=== PATIENT | male | born 1975 | race Caucasian/White ===

== ENCOUNTER 2021-03-10 15:43 | Emergency (ER) | payer MEDICARE, MEDICAID ==
--- NOTE | 2021-03-10 15:51 | EDM.PDOC ---
ED HPI GENERAL MEDICAL PROBLEM - General Stated Complaint: sob Time Seen by Provider: 03/10/21 15:50 Source of Information: Reports: Patient, EMS, EMS Notes Reviewed History Limitations: Reports: Intoxication - History of Present Illness INITIAL COMMENTS - FREE TEXT/NARRATIVE: pt is here severely intoxicated w alcohol , comes from home after he called EMS with c/o chest pain, he was found lethargic , with stable vitals and nl BS, pt here is able to states that his chest hurts , denies taking any drugs, admit to alcohol, denies head trauma or any other associated sx. Chest Pain Score (Numeric/FACES): 5 - Related Data Allergies Allergy/AdvReac Type Severity Reaction Status Date / Time No Known Allergies Allergy Verified 01/15/16 08:44 Home Meds: Home Meds Hydrocodone/Acetaminophen [[place] 5-325] 1 - 2 tab PO Q4H PRN #20 tablet 01/15/16 [Rx] Penicillin V Potassium [IJD: Penicillin V Potassium] 500 mg PO .EVERY 6 HOURS #40 tab 01/15/16 [Rx] Past Medical History - Infectious Disease History Infectious Disease History: Reports: Chicken Pox - Past Surgical History Musculoskeletal Surgical History: Reports: Arthroscopic Knee Social & Family History - Family History Family Medical History: No Pertinent Family History ED ROS GENERAL - Review of Systems Review Of Systems: See Below Constitutional: Reports: Weakness, Fatigue HEENT: Reports: No Symptoms Respiratory: Reports: No Symptoms Cardiovascular: Reports: Chest Pain GI/Abdominal: Reports: No Symptoms : Reports: No Symptoms Musculoskeletal: Reports: No Symptoms Skin: Reports: No Symptoms Neurological: Reports: No Symptoms ED EXAM, GENERAL - Physical Exam Exam: See Below Exam Limited By: Other (lethergy and alcohol intoxication.) General Appearance: Alert, No Apparent Distress Eye Exam: Bilateral Eye: Normal Inspection Nose: Normal Inspection Throat/Mouth: Normal Inspection, Normal Oropharynx Head: Atraumatic, Normocephalic Neck: Normal Inspection, Supple, Full Range of Motion Respiratory/Chest: No Respiratory Distress, Lungs Clear, No Accessory Muscle Use Cardiovascular: Normal Peripheral Pulses, Regular Rate, Rhythm, No Murmur GI/Abdominal: Normal Bowel Sounds, Soft, Non-Tender Back Exam: Normal Inspection Extremities: Normal Inspection, Normal Range of Motion, No Pedal Edema, Normal Capillary Refill #1 Interpretation EKG Date: 03/10/21 Time: 15:54 Rhythm: NSR [place]: Normal P-Wave: Present QRS: Normal ST-T: Normal QT: Normal Course - Vital Signs Text/Narrative:: pt is severly intoxicated w alcohol, etoh is 0.25, his labs were reviewed, has mildly elevated liver enzymes and ALK-Ph , CXR shows no aspiration, trop is neg and ekg NSR , chest pain is likely secondary to reflex disease ... pt has known Hx of alcoholism ... pt is still intoxicated, and will continue hydration/ monitoring until he is sober up in few hrs, pt care will be handed to the upcoming physician at time of shift change at 7 PM. Last Recorded V/S: Last Vital Signs Temp 36.6 C 03/10/21 15:43 Pulse 112 H 03/10/21 15:43 Resp 12 03/10/21 15:43 BP 156/115 H 03/10/21 15:43 Pulse Ox 97 03/10/21 15:43 - Orders/Labs/Meds Orders: Active Orders 24 hr Category Date Time Status Chest 1V Frontal [CR] Stat Exams 03/10/21 16:29 Taken Sodium Chloride 0.9% [Normal Saline] 1,000 ml Med 03/10/21 16:00 Active IV ASDIRECTED Medication Orders Sodium Chloride (Normal Saline) 1,000 mls @ 999 mls/hr IV ASDIRECTED TATIANA Last Admin: 03/10/21 16:11 Dose: 999 mls/hr Documented by: MARBELLA Labs: Laboratory Tests 03/10/21 03/10/21 03/10/21 Range/Units 16:00 16:00 16:00 WBC 8.0 (3.2-10.1) x10-3/uL RBC 5.87 (3.90-5.90) x10(6)uL Hgb 18.5 H (12.9-17.7) g/dL Hct 53.1 H (38.3-50.1) % MCV 90.6 (80.8-98.7) fL MCH 31.6 (27.0-33.3) pg MCHC 34.9 (28.7-35.3) g/dL RDW 12.7 (12.4-15.0) % Plt Count 353 (117-477) x10(3)uL MPV 6.4 L (6.7-11.0) fL Neut % (Auto) 55.4 (40.3-71.8) % Lymph % (Auto) 35.6 (15.8-45.3) % Cache % (Auto) 5.4 L (5.5-15.2) % Eos % (Auto) 2.1 (0.1-6.8) % Baso % (Auto) 1.5 (0.3-3.8) % Neut # (Auto) 4.5 (1.7-6.9) x10-3/uL Lymph # (Auto) 2.9 (0.5-4.5) x10-3/uL Cache # (Auto) 0.4 (0.0-1.2) x10-3/uL Eos # (Auto) 0.2 (0.0-0.6) x10-3/uL Baso # (Auto) 0.1 (0.0-0.3) x10-3/uL Sodium 139 (135-145) mmol/L Potassium 3.4 L (3.5-5.3) mmol/L Chloride 98 L (100-110) mmol/L Carbon Dioxide 19 L (21-32) mmol/L BUN 8 (7-18) mg/dL Creatinine 0.9 (0.70-1.30) mg/dL Est Cr Clr Drug Dosing TNP Estimated GFR (MDRD) > 60 (>60) BUN/Creatinine Ratio 8.9 L (9-20) Glucose 222 H (80-116) mg/dL Calcium 9.2 (8.6-10.2) mg/dL Total Bilirubin 0.5 (0.1-1.3) mg/dL AST 64 H (5-25) IU/L ALT 69 H (12-36) U/L Alkaline Phosphatase 253 H (56-112) IU/L Troponin I (4.0-60.3) pg/mL Total Protein 8.4 H (6.0-8.0) g/dL Albumin 4.0 (3.5-5.2) g/dL Globulin 4.4 g/dL Albumin/Globulin Ratio 0.9 TSH, Ultra Sensitive 1.26 (0.36-3.74) IU/mL Urine Opiates Screen (NEGATIVE) Ur Buprenorphine Scrn (NEGATIVE) Ur Oxycodone Screen (NEGATIVE) Urine Methadone Screen (NEGATIVE) Ur Propoxyphene Screen (NEGATIVE) Ur Barbiturates Screen (NEGATIVE) Ur Tricyclics Screen (NEGATIVE) Ur Phencyclidine Scrn (NEGATIVE) Ur Amphetamine Screen (NEGATIVE) U Methamphetamines Scrn (NEGATIVE) U Benzodiazepines Scrn (NEGATIVE) U Cocaine Metab Screen (NEGATIVE) U Marijuana (THC) Screen (NEGATIVE) Ethyl Alcohol 0.25 H* (<0.03) % 03/10/21 03/10/21 Range/Units 16:00 16:54 WBC (3.2-10.1) x10-3/uL RBC (3.90-5.90) x10(6)uL Hgb (12.9-17.7) g/dL Hct (38.3-50.1) % MCV (80.8-98.7) fL MCH (27.0-33.3) pg MCHC (28.7-35.3) g/dL RDW (12.4-15.0) % Plt Count (117-477) x10(3)uL MPV (6.7-11.0) fL Neut % (Auto) (40.3-71.8) % Lymph % (Auto) (15.8-45.3) % Cache % (Auto) (5.5-15.2) % Eos % (Auto) (0.1-6.8) % Baso % (Auto) (0.3-3.8) % Neut # (Auto) (1.7-6.9) x10-3/uL Lymph # (Auto) (0.5-4.5) x10-3/uL Cache # (Auto) (0.0-1.2) x10-3/uL Eos # (Auto) (0.0-0.6) x10-3/uL Baso # (Auto) (0.0-0.3) x10-3/uL Sodium (135-145) mmol/L Potassium (3.5-5.3) mmol/L Chloride (100-110) mmol/L Carbon Dioxide (21-32) mmol/L BUN (7-18) mg/dL Creatinine (0.70-1.30) mg/dL Est Cr Clr Drug Dosing Estimated GFR (MDRD) (>60) BUN/Creatinine Ratio (9-20) Glucose (80-116) mg/dL Calcium (8.6-10.2) mg/dL Total Bilirubin (0.1-1.3) mg/dL AST (5-25) IU/L ALT (12-36) U/L Alkaline Phosphatase (56-112) IU/L Troponin I 5.7 (4.0-60.3) pg/mL Total Protein (6.0-8.0) g/dL Albumin (3.5-5.2) g/dL Globulin g/dL Albumin/Globulin Ratio TSH, Ultra Sensitive (0.36-3.74) IU/mL Urine Opiates Screen Negative (NEGATIVE) Ur Buprenorphine Scrn Negative (NEGATIVE) Ur Oxycodone Screen Negative (NEGATIVE) Urine Methadone Screen Negative (NEGATIVE) Ur Propoxyphene Screen Negative (NEGATIVE) Ur Barbiturates Screen Negative (NEGATIVE) Ur Tricyclics Screen Negative (NEGATIVE) Ur Phencyclidine Scrn Negative (NEGATIVE) Ur Amphetamine Screen Negative (NEGATIVE) U Methamphetamines Scrn Negative (NEGATIVE) U Benzodiazepines Scrn Negative (NEGATIVE) U Cocaine Metab Screen Negative (NEGATIVE) U Marijuana (THC) Screen Negative (NEGATIVE) Ethyl Alcohol (<0.03) % Meds: Medications Generic Name Dose Route Start Last Admin Trade Name Freq PRN Reason Stop Dose Admin Sodium Chloride 1,000 mls @ 999 mls/hr 03/10/21 16:00 03/10/21 16:11 Normal Saline IV 999 mls/hr ASDIRECTED TATIANA Administration Discontinued Medications Generic Name Dose Route Start Last Admin Trade Name Freq PRN Reason Stop Dose Admin Al Hydroxide/Mg Hydroxide 30 0 ml 03/10/21 16:29 03/10/21 17:06 ml/ Lidocaine HCl 30 ml PO 03/10/21 16:30 45 ml ONETIME ONE Administration Naloxone HCl 0.4 mg 03/10/21 15:52 03/10/21 16:10 Naloxone 0.4 Mg/Ml Sdv IVPUSH 0.4 mg ONETIME PRN Administration altered mental Departure - Departure Time of Disposition: 20:00 Disposition: Home, Self-Care 01 Clinical Impression: Alcohol intoxication - Discharge Information Referrals: PCP,None [Primary Care Provider] - Sepsis Event Note (ED) - Focused Exam Vital Signs: Vital Signs Temp Pulse Resp BP Pulse Ox 03/10/21 15:43 36.6 C 112 H 12 156/115 H 97 - My Orders Last 24 Hours: My Active Orders 03/10/21 16:00 Sodium Chloride 0.9% [Normal Saline] 1,000 ml IV ASDIRECTED 03/10/21 16:29 Chest 1V Frontal [CR] Stat - Assessment/Plan Last 24 Hours: My Active Orders 03/10/21 16:00 Sodium Chloride 0.9% [Normal Saline] 1,000 ml IV ASDIRECTED 03/10/21 16:29 Chest 1V Frontal [CR] Stat
[2021-03-10] MEDS ORDERED: Naloxone 0.4 MG/ML SDV IVPUSH PRN (15:52)
[2021-03-10] MEDS: Sodium Chloride 0.9% 1,000 ML IV SCH ×4 (16:11→22:50)
[2021-03-10] MEDS ORDERED: Alum Hydroxide/Mag Hydroxide 30 ML, Lidocaine 2% 30 ML PO ONE ×2 (16:29)
[2021-03-10 17:06] VITALS: BP 156/115; PULSE 112
--- NOTE | 2021-03-10 17:59 | CR ---
INDICATION: Chest pain. CHEST, ONE VIEW: Portable AP upright view of the chest 03/10/21 - no comparisons. The heart is normal in size and shape. Overlying EKG leads are noted. The mediastinum was unremarkable. A definite active infiltrate or effusion was not identified. IMPRESSION: No acute process. MTDD
[2021-03-10] MEDS ORDERED: Sodium Chloride 0.9% 1,000 ML IV SCH (20:40)
[2021-03-10] MEDS ORDERED: Ondansetron 4 MG/2 ML SDV IVPUSH ONE (23:02)
[2021-03-10] MEDS ORDERED: LORazepam 2 MG/ML SDV IVPUSH ONE (23:18)
[2021-03-10] MEDS ORDERED: Thiamine 100 MG in Sodium Chloride 0.9% 100 ML IV ONE (23:35)
[2021-03-10] MEDS ORDERED: Potassium Chloride 40 MEQ/20 ML SDV IV ONE (23:39)
[2021-03-10] MEDS ORDERED: LORazepam 2 MG/ML SDV IV SCH (23:45)
[2021-03-10] MEDS ORDERED: Folic Acid 50 MG/10 ML MDV IV SCH (23:45)
[2021-03-11] MEDS: Potassium Chloride 100 ML IV SCH ×2 (00:33→04:18)
[2021-03-11] MEDS: Sodium Chloride 0.9% 1,000 ML IV SCH (05:50)
[2021-03-11] MEDS ORDERED: Diazepam 5 MG Tab PO STA (07:27)
== END 2021-03-11 10:30 | disposition other institution (70) ==
LOC: FB.ED 15:43
DX: F10.129 Alcohol abuse with intoxication, unspecified (principal); Y90.8 Blood alcohol level of 240 mg/100 ml or more; Z20.822 Contact with and (suspected) exposure to COVID-19
CPT/HCPCS: 36415; 71045; 80053; 80307; 84443; 84484; 85025; 96365; 96366; 96367; 96375; 99285; A9270; J2060; J2310; J2405; J3411; J3480; J7030; U0002; J3490